=== PATIENT | female | born 1960 | race Two or more races ===

== ENCOUNTER 2017-03-22 05:04 | Inpatient (IN) | payer OTHER ==
[~2017-03-22] VITALS: Ht 157.5 cm; Wt 78.0 kg
[2017-03-22] MEDS ORDERED: oxyCODONE HCL SR 10MG TAB.SR.12H PO ONE (05:47)
[2017-03-22] MEDS ORDERED: CELECOXIB 100 MG CAPSULE ONE (05:47)
[2017-03-22] MEDS ORDERED: CEFAZOLIN SODIUM/DEXTROSE,ISO 100 ML IV ONE (05:47)
[2017-03-22] MEDS ORDERED: ACETAMINOPHEN 325 MG TABLET ONE (05:47)
[2017-03-22] MEDS ORDERED: BACITRACIN 50000 UNITS/VIAL ONE (06:58)
[2017-03-22] MEDS ORDERED: BUPIVACAINE 0.5 % PF 150 MG/30 ML VIAL ONE (06:58)
[2017-03-22] MEDS ORDERED: KETOROLAC TROMETHAMINE INJ 30 MG/ML VIAL ONE (06:58)
[2017-03-22] MEDS ORDERED: TRANEXAMIC ACID 3,000 MG in SODIUM CHLORIDE IRRIG SOLUTION 70 ML IR ONE (08:30)
[2017-03-22] MEDS ORDERED: MORPHINE SULFATE/PF 10 MG/10ML (1MG/ML) AMPUL ONE (08:39)
[2017-03-22 11:45] VITALS: BP 144/78
--- NOTE | 2017-03-22 11:45 | NUR ---
RN POST OPERATIVE PT. RECEIVED PT. IN MEDICALLY STABLE CONDITION. A&OX4. REPORT WAS GIVEN BY OR NURSE AND POST OP ORDERS WERE FAXED TO PHARMACY.
[2017-03-22] MEDS ORDERED: SENNOSIDES 8.6 MG TABLET PO PRN (13:16)
[2017-03-22] MEDS ORDERED: CLONIDINE HCL 0.1 MG TABLET PO PRN (13:30)
[2017-03-22] MEDS ORDERED: PROMETHAZINE HCL 25 MG/ML AMPUL IM PRN (13:30)
[2017-03-22] MEDS ORDERED: MAG HYDROX/AL HYDROX/SIMETH 30 ML UDC PO PRN (13:30)
[2017-03-22] MEDS ORDERED: MENTHOL/CETYLPYRD (CEPACOL) 1 LOZ LOZENGE MM PRN (13:30)
[2017-03-22] MEDS ORDERED: diphenhydrAMINE HCL 25 MG CAPSULE PO PRN (13:30)
[2017-03-22] MEDS ORDERED: oxyCODONE IR immediate release 5 MG PO PRN (13:30)
[2017-03-22] MEDS ORDERED: BISACODYL SUPP (10 MG) 10 MG/SUPP.RECT SUPP.RECT RC PRN (13:30)
[2017-03-22] MEDS ORDERED: HYDROCODONE/APAP 10/325MG 1 EA TABLET PO PRN (13:30)
[2017-03-22] MEDS ORDERED: MAGNESIUM HYDROXIDE 30 ML UDC PO PRN (13:30)
[2017-03-22] MEDS ORDERED: HYDROMORPHONE INJ 0.5 MG/0.5 ML SYRINGE IV PRN (13:30)
[2017-03-22] MEDS ORDERED: ZOLPIDEM TARTRATE 5 MG TABLET PO PRN (13:30)
[2017-03-22] MEDS ORDERED: NALOXONE HCL 0.4 MG/ML AMPUL IV PRN (13:30)
[2017-03-22] MEDS ORDERED: ACETAMINOPHEN 325 MG TABLET PO PRN (13:30)
[2017-03-22] MEDS ORDERED: ONDANSETRON HCL/PF 4 MG/2 ML VIAL IVP PRN (15:00)
[2017-03-22] MEDS ORDERED: diphenhydrAMINE HCL 50 MG/ML VIAL IM PRN (15:00)
[2017-03-22] MEDS: HYDROMORPHONE INJ 0.5 MG/0.5 ML SYRINGE IV PRN ×2 (15:16→23:41)
[2017-03-22 16:00] VITALS: BP 134/76
[2017-03-22] MEDS: CEFAZOLIN SODIUM 1 GM in IV SODIUM CHLORIDE 0.9% 50 ML IV SCH (17:22)
[2017-03-22] MEDS: DOCUSATE SODIUM 100 MG CAPSULE PO SCH (17:22)
--- NOTE | 2017-03-22 19:35 | NUR ---
RN CLOSING NOTES PT. IN BED A&OX. BREATHING UNLABORED, AND EVENLY ON ROOM AIR. NO S/S OF ACUTE DISTRESS. IV FLUIDS RUNNING AT 125 ML/HR. PT. HAS A JAMIL CATHETER WITH CLEAR AND YELLOW URINE OUTPUT 350 CC TOTAL. VITAL SIGNS WERE CHECKED POST OP Q15MIN X4, [id number], Q1HRS X4. BED IS IN LOWEST, AND LOCKED POSITION WITH 2 SIDE RAILS UP. CALL LIGHT IS WITHIN REACH. ALL NEEDS MET. WILL ENDORSE REPORT TO NURSE.
--- NOTE | 2017-03-22 19:45 | NUR ---
HELPER STEEL FABRICATION INITIAL NOTES PT IS IN BED RESTING, ABLE TO MAKE NEEDS KNOWN. NO SIGNS OF SOB OR DISTRESS, BREATHING EVENLY AND UNLABORED ON RA. IV ACCESS IS INTACT AND PATENT WITH D5 1/2 NS @ 125 RUNNING. DRESSING ON LEFT KNEE INTACT AND PATENT. PT DENIES PAIN AT THIS TIME, PAIN MEDICATION REGIMEN WAS EXPLAINED TO PT, VERBALIZED UNDERSTANDING. BED IS IN LOW AND LOCKED POSITION, CALL LIGHT IS WITHIN REACH. WILL CONTINUE TO MONITOR PT
[2017-03-22 20:00] VITALS: BP 132/77
[2017-03-22] MEDS: PANTOPRAZOLE 40 MG TABLET.DR PO SCH (21:12)
[2017-03-22] MEDS: ASPIRIN 325 MG TABLET PO SCH (21:12)
[2017-03-22] MEDS: IV D5/0.45 NACL 1,000 ML IV PRN (21:16)
--- NOTE | 2017-03-22 21:24 | NUR ---
PORTRAIT PHOTOGRAPHER NOTES INCENTIVE SPIROMETER GIVEN TO PT AND EXPLAINED
[2017-03-22] MEDS: ONDANSETRON HCL/PF 4 MG/2 ML VIAL IVP PRN (22:59)
[2017-03-23] VITALS: BP 141/76
[2017-03-23] MEDS: CEFAZOLIN SODIUM 1 GM in IV SODIUM CHLORIDE 0.9% 50 ML IV SCH (00:18)
[2017-03-23] MEDS: HYDROMORPHONE INJ 0.5 MG/0.5 ML SYRINGE IV PRN ×4 (03:48→20:12)
[2017-03-23 04:00] VITALS: BP 116/63
[2017-03-23] MEDS: HYDROCODONE/APAP 10/325MG 1 EA TABLET PO PRN ×2 (05:52→15:42)
[2017-03-23] MEDS: IV D5/0.45 NACL 1,000 ML IV PRN (06:02)
--- NOTE | 2017-03-23 06:17 | NUR ---
TALENT SCOUT CLOSING NOTES PT IS IN BED RESTING. DENIES PAIN AT THIS TIME. NO SIGNS OF SOB OR DISTRESS, BREATHING EVENLY AND UNLABORED ON RA. IV ACCESS IS INTACT AND PATENT WITH D5 1/2 NS INFUSING. JAMIL CATHETER IS INTACT AND DRAINING. ALL NEEDS WERE ANTICIPATED AND MET. BED IS IN LOW AND LOCKED POSITION, CALL LIGHT WITHIN REACH. WILL ENDORSE TO DAYSHIFT
--- NOTE | 2017-03-23 07:40 | NUR ---
RN OPENING NOTES RECEIVED PT. PT IS STABLE AND RESTING IN BED. NO S/S OF RESP DISTRESS OR SOB. PT HAD C/O PAIN, PHARMACOLOGICAL INTERVENTION IMPLEMENTED BY COPY CENTER OPERATOR RN, WILL F/U FOR REASSESSMENT. A/OX4. FC PATENT AND IN PLACE, PER MD NOTE FC TO BE D/C AT APPROXIMATELY NOON. IV ACCESS LOCATED ON LEFT HAND 22G INFUSING D5 1/2 NS @ 125 ML/HR. PT TO HAVE WOUND AND SOCIAL SERVICE CONSULT. SAFETY MEASURES IN PLACE, CALL LIGHT WITHIN REACH. WILL CONTINUE TO MONITOR.
[2017-03-23 08:00] VITALS: BP 123/56
--- NOTE | 2017-03-23 08:05 | NUR ---
WOUND CONSULT WOUND CARE RECEIVED CONSULT FOR POST OP LEFT KNEE REPLACEMENT. WOUND CARE WILL DEFER TO ORTHO AT THIS TIME WITH WOUND CARE ASSIST IF REQUESTED BY ORTHO MD. PATIENT WITH CURRENT BEN AT 17.
[2017-03-23] MEDS: ASPIRIN 325 MG TABLET PO SCH ×2 (08:52→16:01)
[2017-03-23] MEDS: DOCUSATE SODIUM 100 MG CAPSULE PO SCH ×2 (08:52→16:01)
[2017-03-23] MEDS ORDERED: HYDROCODONE/APAP 10/325MG 1 EA TABLET PO PRN (09:00)
[2017-03-23] MEDS ORDERED: oxyCODONE IR immediate release 5 MG PO PRN (09:00)
[2017-03-23] MEDS: ONDANSETRON HCL/PF 4 MG/2 ML VIAL IVP PRN (10:25)
[2017-03-23] MEDS: AMLODIPINE BESYLATE 5 MG TABLET PO SCH (10:30)
--- NOTE | 2017-03-23 10:30 | NUR ---
RN NOTES PT DIALYSIS COMPLETED WITH 1.5L OF OUTPUT. AM MEDICATIONS HELD DURING SESSION, WILL ADMIN.
[2017-03-23 16:00] VITALS: BP 153/78
--- NOTE | 2017-03-23 18:20 | NUR ---
Met with patient and family, she is alert and pleasant. Patient is pod#1 s/p left TKA. Primary dialect is Kinyarwanda. Patient lives at home with spouse, her children lives nearby and provides assistance as needed. Prior to admit- patient was ambulatory and independent with adl's. [employer] [phone] delivered immobilizer at bedside. Homehealth PT arranged with [facility] [phone] to start 03/25/17. [facility] will contact patient and block and case maker with info of patient homehealth provider. Left message to [employer] [phone] regarding delivery of CPM. Patient will need walker on discharge. Family are involved and supportive, family will provide ride home once discharge. Addendum: 03/23/17 at 1824 by TINY KIMBALL RN Amended: Links added.
--- NOTE | 2017-03-23 18:50 | NUR ---
RN CLOSING NOTES PT IS IN BED RESTING. NO S/S OF RESP DISTRESS. PT HAS C/O MILD PAIN 2/10 IN LLE. PER MD NOTE, CONT PT AND PAIN MANAGEMENT. ALL PT NEEDS ANTICIPATED AND MET, SAFETY MEASURES IN PLACE. CALL LIGHT WITHIN REACH. WILL ENDORSE TO LOG PROCESSOR OPERATOR FOR JUAN.
--- NOTE | 2017-03-23 19:32 | NUR ---
MS/RN OPENING NOTES PATIENT IN BED, AROUSABLE, REPORTED A LITTLE PAIN BUT TOLERABLE, RESPIRATIONS EVEN AND UNLABORED, CALL LIGHTS WITHIN REACH, OBSERVE MEDICATION METOPROLOL PATIENT HOME MED AND DISCUSSED THAT FAMILY MAY NEED TO BRING IT HOME, SON WILL AUTO HAULER, WILL MONITOR AND CHECK B/P AND ADD, ON ORDER FOR CPM, AND PT , RECEIVED ENDORSEMENT FORM AM RN WILL CONTINUE TO MONITOR.
[2017-03-23 20:00] VITALS: BP 159/87
--- NOTE | 2017-03-23 20:12 | NUR ---
ms/rn notes patient in 8/10 level of pain in left knee, will administer as needed pain medication of ivp dilaudid0.5mg/0.5ml and will monitor.
[2017-03-23] MEDS: PANTOPRAZOLE 40 MG TABLET.DR PO SCH (21:54)
[2017-03-24] MEDS: HYDROMORPHONE INJ 0.5 MG/0.5 ML SYRINGE IV PRN ×4 (01:01→14:17)
--- NOTE | 2017-03-24 04:59 | NUR ---
ms/rn notes patient reported pain in left knee, requesting as needed pain medication, b/p 151/86, o2sat at97%/
[2017-03-24] MEDS: IV D5/0.45 NACL 1,000 ML IV PRN (05:09)
--- NOTE | 2017-03-24 06:45 | NUR ---
ms/rn closing notes patient able to sleep during the night, pain medication monitor, relieved with every 3 hours monitoring, lindo removed, iv fluids running ,iv patent, bed in lock position, call lights within reach, will endorse to am rn for jake.
[2017-03-24 08:00] VITALS: BP 148/75
--- NOTE | 2017-03-24 08:15 | NUR ---
MS RN RECEIVED ON BED,AWAKE,ALERT,ORIENTED X 4,NOT IN ANY FROM OF DISTRESS, RESPIRATIONS EVEN AND UNLABORED,NO SOB NOTED, S/P LEFT KNEE SURGERY W/ DRESSING DRY AND INTACT, DENIES PAIN AT THIS TIME, WILL MONITOR PATIENT'S CONDITION.
[2017-03-24] MEDS ORDERED: ATENOLOL 50 MG TABLET PO SCH (09:00)
--- NOTE | 2017-03-24 09:00 | NUR ---
MS RN BREAKFAST SERVED,DUE MEDS GIVEN,TOLERATED WELL. ALL NEEDS ATTENDED.
[2017-03-24] MEDS: ASPIRIN 325 MG TABLET PO SCH (09:52)
[2017-03-24] MEDS: AMLODIPINE BESYLATE 5 MG TABLET PO SCH (09:52)
[2017-03-24] MEDS: DOCUSATE SODIUM 100 MG CAPSULE PO SCH (09:52)
[2017-03-24 09:53] VITALS: BP 148/75
--- NOTE | 2017-03-24 11:30 | NUR ---
MS RN WAS SEEN BY PT, WALKED W/ WALKER,TOLERATED WELL.
--- NOTE | 2017-03-24 13:00 | NUR ---
MS RN WAS SEEN BY SARA Manriquez/ OUMAR TO GO HOME TODAY.
--- NOTE | 2017-03-24 15:30 | NUR ---
MS RN PATIENT WENT HOME W/ PAIN PRESCRIPTION, DISCHARGE INSTRUCTION GIVEN , WENT HOME W/ FAMILY.NO DISTRESS NOTED.
== END 2017-03-24 15:15 | disposition home or self-care (01) | DRG 470 ==
LOC: DS 05:04 → MED 12:53 → TELE 22:08 → MED 03-23 09:22
PROVIDERS: ADMIT Specialist; ATTEND Internal Medicine
DX: M17.12 Unilateral primary osteoarthritis, left knee (principal); E66.9 Obesity, unspecified; M22.2X2 Patellofemoral disorders, left knee; W17.89XA Other fall from one level to another, initial encounter; X58.XXXA Exposure to other specified factors, initial encounter; Y92.69 Other specified industrial and construction area as the place of occurrence of the external cause; I10 Essential (primary) hypertension; Y99.0 Civilian activity done for income or pay; E78.5 Hyperlipidemia, unspecified; Z68.31 Body mass index [BMI] 31.0-31.9, adult; G89.18 Other acute postprocedural pain; Z83.3 Family history of diabetes mellitus; Z82.49 Family history of ischemic heart disease and other diseases of the circulatory system
CPT/HCPCS: 36415; 86850-TC; 86921-TC; 88305-TC; 88311-TC; 97110-TC; 97116-TC; 97530-TC; 97760-TC; A4216; A4217; A6402; C1713; J0690; J1885; J2274; J2405; J3490; J7030; J7120; Z7610